=== PATIENT | male | born 1950 ===

== ENCOUNTER 2023-11-03 10:00 | Outpatient (RCR) | payer OTHER, SELFPAY ==
--- NOTE | 2023-10-06 12:05 | OPREHPOC ---
Outpatient Therapy Plan of Care This is a Multidisciplinary Plan of Care that may contain components documented by all disciplines (PT, OT, and ST.) PT Problem 1 PT Problem #1 Knowledge Deficit PT Goal 1 Goal *indep with HEP Target Visit 8 PT Problem 2 PT Problem #2 Pain PT Goal 1 Goal 1* pt report pain at worst rating of 4/10 2* self assessment Oswestry rating of 30% limitation in activity 3* R LE radicular pain to lateral hip at worst Target Visit 8 PT Problem 3 PT Problem #3 Impaired Strength PT Goal 1 Goal increase strength of trunk and hips to increase mobility skills 1* supine mat strengthening exercises x 20 reps with good control 2* single leg standing R x 15 seconds with good stability 3* single leg standing L x 15 seconds with good stability Target Visit 8 PT Problem 4 PT Problem #4 Impaired Functional Mobil PT Goal 1 Goal 1* 5 reps sit/stand time of 20 seconds 2* 2 minute walking test distance of 375' Target Visit 8
--- NOTE | 2023-10-06 12:06 | PTOPEVAL1 ---
Assessment and note entered by Pham Schultz, PT Evaluation Information Assessment Status Evaluation Diagnosis chronic back pain Onset about one year Subjective Information chronic back pain over about 8 years ago; increase more in the past year, as being more active after heart surgery; on August 15 had minimal invasive lumbar discectomy- gave some pain relief; under care of pain management--they want him to try aquatic therapy. had PT at another facility for back pain-prior to procedure-stretching exercises and machines, helped some; keeping up with some of the exercises Activity: is indep with home and self care tasks; take more time and have pain with tasks; limited standing tolerance; use cane when going out of home, in home no device; have membership to [employer], going there and doing recumbent bicycle; they have a pool there and he has done some walking in the pool. Reported Pain Level Pain Score Self Report Additional Pain Score Comments pain range in the past week 0-6/10; radicular R lateral thigh; no pain in L leg. legs weak; R lumbar increase pain: standing over few minutes; stairs, first get up in AM decrease pain: sit down, tylenol PM for sleeping, heat, lidocaine patch sleeping is not disrupted due to back pain, take ambien and tylenol PM; Assessment PT Clinical Summary Handy has the diagnosis of chronic back pain, radicular to R LE to lateral thigh, intermittent. He had a recent min invasive lumbar discectomy. Self assessment Oswestry score of 46% limitation. He uses a cane for walking and reports legs are weak and balance problems. Standing is limited to a few minutes only. With the evaluation: poor standing position of trunk and hips; tightness of both hamstrings, anterior hip-quad with weakness of trunk and LEs; 2 minute walking test dis
--- NOTE | 2023-11-03 10:43 | PTOPDC ---
Assessment and note entered by Pham Schultz, PT Discharge Information Assessment Status Discharge Diagnosis chronic back pain Onset about one year Subjective Information therapy has helped me get stronger; still weak on the stairs; use the cane when walk out of house, due to balance; have been doing the exercises twice a day--they help; to have steroid injections in back next week; have not been going to the fitness center since coming for therapy and have a lot of dr appt. feel like want to try and do exercises on my own and not come for any more therapy. Reported Pain Level Pain Score Self Report Additional Pain Score Comments pain range in the past week of 0-5/10; intermittent R to mid thigh; walking tolerance report of 5 minutes and standing tolerance of 10 minutes with kitchen; Assessment PT Clinical Summary Handy has received 8 PT sessions. Compared to the initial evaluation: pain rating from 0-6 to 0-5/10; continues to have radicular pain is intermittent into R lateral thigh; self assessment Oswestry rating from 46% to 32% limitation in activity level; 5 rep sit to stand time improved by 5 seconds; 2 minute walking test distance increased from 275' with pain rating of 4 /10 to 300' with pain rating of 2/10; increase strength of R and L LE with mat exercises; continues to have weakness with single leg standing on R and L; education completed for HEP and pain control techniques. The goals were partially met. Discharge PT. He is to continue with his HEP and balance of activity/rest. Plan of Care PT Services Indicated No
== END 2023-11-04 12:01 | disposition home or self-care (01) ==
LOC: ANHPT 10:00
PROVIDERS: PCP Family Medicine; Visit Provider Family Medicine
DX: M54.42 Lumbago with sciatica, left side (principal); M54.41 Lumbago with sciatica, right side; G89.29 Other chronic pain
CPT/HCPCS: 97110; 97113; 97162; 97530